=== PATIENT | male | born 1995 | race African-American/Black ===

== ENCOUNTER 2016-08-15 20:43 | Inpatient (IN) | payer SELFPAY ==
[~2016-08-15] VITALS: Ht 182.9 cm; Wt 71.2 kg
[~2016-08-15 20:43] MED LIST: CLIN-44 PO; HYDR-971 PO; PRED-220 PO
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
[2016-08-15 21:29] LABS: BASO # 0.1 x10^3/uL (0.0-0.2); BASO % 0 % (0-3); EOS % 1 % (0-3); HEMOGLOBIN 13.6 g/dL (13.0-17.5); LYMPH # 1.6 x10^3/uL (1.0-4.8); LYMPH % 10 % (24-48); MEAN CORPUSCULAR HEMOGLOBIN 30 pg (25-35); MEAN CORPUSCULAR HGB CONC 32 g/dL (31-37); MEAN CORPUSCULAR VOLUME 94 fL (79-100); MONO % 6 % (0-9); NEUT % 84 % (31-73); PLATELET COUNT 289 x10^3/uL (140-400); RED BLOOD COUNT 4.46 x10^6/uL (4.30-5.70); RED CELL DISTRIBUTION WIDTH 12.4 % (11.5-14.5); WHITE BLOOD COUNT 16.4 x10^3/uL (4.0-11.0)
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
[2016-08-15 21:37] LABS: BILIRUBIN,URINE NEGATIVE (NEG); GLUCOSE,URINE NEGATIVE (NEG); NITRITE,URINE NEGATIVE (NEG); PROTEIN,URINE 100 mg/dL (NEG-TRACE)
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
[2016-08-15 21:39] LABS: GFR 113.1; POTASSIUM 3.6 mmol/L (3.5-5.1)
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
[2016-08-15 21:43] LABS: INR 1.2 (0.8-1.1); PROTHROMBIN TIME PATIENT 14.7 SEC (11.7-14.0)
[2016-08-15 21:43] LABS: BARBITURATES NEG (NEG); BENZODIAZEPINES NEG (NEG); CANNABINOIDS NEG (NEG); COCAINE NEG (NEG); ETHANOL, URINE NEG (NEG); METHADONE NEG (NEG); OPIATES NEG (NEG); PHENCYCLIDINE NEG (NEG)
[2016-08-15 21:45] LABS: BACTERIA,URINE 0 /HPF (0-FEW)
[2016-08-15] MEDS ORDERED: CONTRAST GIVEN MC PRN (22:00)
[2016-08-15] MEDS ORDERED: ONDANSETRON PF 4 MG/2 ML VIAL. IV PRN (22:00)
[2016-08-15] MEDS ORDERED: DIPHTH,PERTUSS(ACELL),TET TOX 0.5 ML DISP.SYRIN. VAX IM ONE (22:00)
[2016-08-15] MEDS ORDERED: FENTANYL PF 100 MCG/2 ML VIAL. IV ONE (22:00)
[2016-08-15] MEDS ORDERED: IOHEXOL 300 MG/ML 75 ML VIAL IV ONE (22:15)
--- NOTE | 2016-08-15 22:23 | ACF ---
Admission Forms Criteria TRAUMATIC BRAIN INJURY, NONSURGICAL TREATMENT Clinical Indications for Admission to Inpatient Care (Place 'X' for any and all applicable criteria): Admission is indicated for head injury and ANY ONE of the following(1)(2)(3)(4)( 5)(6)(7): [ ]I. Postresuscitation or presenting [place] coma scale (GCS) score of less than 13 [ ]II. New focal signs on neurologic examination [ ]III. Persistently diminished level of consciousness (eg, lethargy, disorientation) [ ]IV. Penetrating wounds [ ]V. Evidence of increased ICP (eg, papilledema, persistent vomiting) [ ]. CSF leak(7)(8) [ ]VII. Significant extracranial injuries [ ]VIII. Intracranial pathology on CT scan(6) [X]IX. Inpatient admission required rather than observation care (Use Traumatic Brain Injury, Nonsurgical Treatment: Observation Care Criteria as appropriate) because of ANY ONE of the following: [ ]a) Intracranial infection identified(8) [ ]b) Cerebral vasospasm identified or suspected [ ]c) Recurrent seizures(9) [ ]d) Surgical intervention or complex wound care required(7)(10) [ ]e) Hemodynamic instability [ ]f) Hypertension requiring inpatient treatment [ ]g) Continuous IV infusion of anticoagulant, platelet inhibitor, vasoactive, or antiarrhythmic Medication(11)(12) [ ]h) Cerebral bleeding, hydrocephalus, or vasospasm monitoring (13) [X]i ) Other condition, treatment or monitoring requiring inpatient admission Extended stay beyond goal length of stay may be needed for(23)(24) [ ]a) Severe injury [ ]b) Ventilatory failure [ ]c) Intracranial infection [ ]d) Increased ICP [ ]e) Cerebral vasospasm [ ]f) New-onset seizures [ ]g) Severe neurologic deficits [ ]h) Surgical intervention The original [employer] content created by [employer] has been revised. The portions of the content which have been revised are identified through the use of italic text or in bold, and [facility] has neither reviewed nor approved the modified material. All other unmodified content is copyright [employer]. Please see references footnoted in the original [employer] edition 2016 Admission Criteria Met?: Yes PAMELA RECINOS Aug 15, 2016 22:23
[2016-08-15 22:45] VITALS: BP 126/75
[2016-08-15 23:00] VITALS: BP 126/70
[2016-08-15] MEDS: FENTANYL PF 100 MCG/2 ML VIAL. IV PRN (23:19)
[2016-08-15] MEDS: IV NORMAL SALINE 1000ML BAG 1,000 ML IV SCH (23:43)
[2016-08-16] MEDS: FENTANYL PF 100 MCG/2 ML VIAL. IV PRN ×6 (01:19→18:44)
[2016-08-16 03:00] VITALS: BP 125/63
[2016-08-16 05:26] LABS: BASO # 0.1 x10^3/uL (0.0-0.2); BASO % 1 % (0-3); EOS % 1 % (0-3); HEMATOCRIT 38.9 % (39.0-53.0); HEMOGLOBIN 12.3 g/dL (13.0-17.5); LYMPH # 2.1 x10^3/uL (1.0-4.8); LYMPH % 19 % (24-48); MEAN CORPUSCULAR HEMOGLOBIN 30 pg (25-35); MEAN CORPUSCULAR HGB CONC 32 g/dL (31-37); MEAN CORPUSCULAR VOLUME 94 fL (79-100); MONO % 8 % (0-9); NEUT % 71 % (31-73); PLATELET COUNT 235 x10^3/uL (140-400); RED BLOOD COUNT 4.12 x10^6/uL (4.30-5.70); RED CELL DISTRIBUTION WIDTH 12.4 % (11.5-14.5); WHITE BLOOD COUNT 11.1 x10^3/uL (4.0-11.0)
--- NOTE | 2016-08-16 06:03 | EKG ---
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
[2016-08-16 07:00] VITALS: BP 128/64
[2016-08-16 07:19] LABS: CALCIUM 8.5 mg/dL (8.5-10.1); CREATININE 0.7 mg/dL (0.7-1.3); GFR 170.6; POTASSIUM 3.6 mmol/L (3.5-5.1)
[2016-08-16] MEDS: IV NORMAL SALINE 1000ML BAG 1,000 ML IV SCH ×2 (08:35→17:53)
[2016-08-16] MEDS ORDERED: ONDANSETRON PF 4 MG/2 ML VIAL. IV PRN (09:22)
[2016-08-16] MEDS ORDERED: NAPROXEN 500 MG TABLET PO SCH (10:00)
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
[2016-08-16] MEDS: HYDROCODONE/APAP 5/325MG TABLET. PO PRN ×2 (12:29→20:27)
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
[2016-08-16] MEDS: LIDOCAINE (700MG/PATCH) PATCH. TD SCH (14:00)
[2016-08-16] MEDS ORDERED: GADOBUTROL 7.5 MMOL/7.5 ML VIAL IV ONE (14:30)
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
[2016-08-16] MEDS: GABAPENTIN 100 MG CAPSULE. PO SCH ×2 (15:30→20:24)
[2016-08-16] MEDS: PANTOPRAZOLE 40 MG TABLET. PO SCH (17:09)
[2016-08-16] MEDS: methylPREDNISolone 4 MG TABLET. PO SCH ×4 (17:09→20:25)
[2016-08-16] MEDS: CYCLOBENZAPRINE 10 MG TABLET. PO SCH (18:39)
[2016-08-16] MEDS: OXYCODONE/APAP 10/325 TABLET. PO PRN ×2 (18:43→23:15)
[2016-08-16 19:00] VITALS: BP 133/70
[2016-08-16 23:00] VITALS: BP 129/62
[2016-08-17] MEDS: CYCLOBENZAPRINE 10 MG TABLET. PO SCH ×5 (00:07→20:45)
[2016-08-17] MEDS: PANTOPRAZOLE 40 MG TABLET. PO SCH (06:10)
[2016-08-17 07:00] VITALS: BP 119/51
[2016-08-17] MEDS: OXYCODONE/APAP 10/325 TABLET. PO PRN ×2 (08:20→12:55)
[2016-08-17] MEDS: LIDOCAINE (700MG/PATCH) PATCH. TD SCH (08:21)
[2016-08-17] MEDS: methylPREDNISolone 4 MG TABLET. PO SCH ×3 (08:21→18:12)
[2016-08-17] MEDS: GABAPENTIN 100 MG CAPSULE. PO SCH ×3 (08:22→21:00)
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
[2016-08-17 11:00] VITALS: BP 129/52
[2016-08-17] MEDS: ENOXAPARIN 40 MG/0.4 ML DISP.SYRIN. SQ SCH (11:00)
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
[2016-08-17 15:00] VITALS: BP 108/48
--- NOTE | 2016-08-17 15:28 | PDOC ---
Provider Note Provider Note Onc consult dictated- [id number] T1 marrow intensity changes- Benign, not suggestive of marrow infiltration. No further eval needed. Thank you. MEGGAN ROBERTSON DO Aug 17, 2016 15:28
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
[2016-08-17 19:00] VITALS: BP 130/72
[2016-08-17] MEDS: HYDROCODONE/APAP 5/325MG TABLET. PO PRN (20:45)
[2016-08-17] MEDS ORDERED: methylPREDNISolone 4 MG TABLET. PO SCH (21:00)
[2016-08-17 23:00] VITALS: BP 137/83
[2016-08-18 03:00] VITALS: BP 115/63
[2016-08-18 05:22] LABS: BASO % 0 % (0-3); EOS % 1 % (0-3); HEMATOCRIT 37.7 % (39.0-53.0); HEMOGLOBIN 12.4 g/dL (13.0-17.5); LYMPH # 1.1 x10^3/uL (1.0-4.8); LYMPH % 9 % (24-48); MEAN CORPUSCULAR HEMOGLOBIN 30 pg (25-35); MEAN CORPUSCULAR HGB CONC 33 g/dL (31-37); MEAN CORPUSCULAR VOLUME 93 fL (79-100); MONO % 6 % (0-9); NEUT % 84 % (31-73); PLATELET COUNT 230 x10^3/uL (140-400); RED BLOOD COUNT 4.08 x10^6/uL (4.30-5.70); RED CELL DISTRIBUTION WIDTH 12.4 % (11.5-14.5); WHITE BLOOD COUNT 11.8 x10^3/uL (4.0-11.0)
[2016-08-18 05:53] LABS: CALCIUM 8.8 mg/dL (8.5-10.1); CREATININE 0.9 mg/dL (0.7-1.3); GFR 127.7; POTASSIUM 4.4 mmol/L (3.5-5.1)
[2016-08-18 06:00] LABS: CKMB INDEX 0.5 % (0-4); CKMB MASS 0.6 ng/mL (0.0-3.6)
[2016-08-18] MEDS: CYCLOBENZAPRINE 10 MG TABLET. PO SCH ×4 (06:33→23:09)
[2016-08-18] MEDS: HYDROCODONE/APAP 5/325MG TABLET. PO PRN ×4 (06:35→23:09)
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
[2016-08-18 07:00] VITALS: BP 124/70
[2016-08-18] MEDS: methylPREDNISolone 4 MG TABLET. PO SCH ×4 (08:47→23:09)
[2016-08-18] MEDS: PANTOPRAZOLE 40 MG TABLET. PO SCH (08:47)
[2016-08-18] MEDS: GABAPENTIN 100 MG CAPSULE. PO SCH ×3 (08:47→21:00)
[2016-08-18] MEDS: LIDOCAINE (700MG/PATCH) PATCH. TD SCH (08:47)
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
[2016-08-18] MEDS: ENOXAPARIN 40 MG/0.4 ML DISP.SYRIN. SQ SCH (10:59)
[2016-08-18 11:00] VITALS: BP 130/77
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
[2016-08-18] MEDS ORDERED: ONDANSETRON PF 4 MG/2 ML VIAL. IV PRN (13:45)
[2016-08-18] MEDS ORDERED: ACETAMINOPHEN 325 MG TABLET. PO PRN (13:45)
[2016-08-18 15:00] VITALS: BP 133/69
--- NOTE | 2016-08-18 15:10 | RAD ---
MRI of the cervical spine without contrast 08/18/2016 Clinical history: Neck pain with left leg numbness and heaviness. Technique: Unenhanced T1-weighted, T2-weighted, inversion recovery sagittal and gradient echo and T2-weighted axial images of the cervical spine were obtained. Findings: Comparison is made to CT scan of the cervical spine dated 08/15/2016. Very mild S-shaped curvature of the thoracolumbar spine is seen. There is reversal of the normal cervical lordosis. The morphology and signal characteristics of all the disks of the cervical spine are within normal limits. The marrow signal of the visualized bony structures is within normal limits. Cervical spinal cord is normal in morphology, position, and signal characteristics. Relatively mild degenerative changes are seen involving the cervical disc spaces consisting of minimal to mild generalized disc bulges and degenerative changes involving the uncovertebral and facet joints, left in the right are seen. These findings do not result in definite areas of significant central spinal canal or neural foraminal stenosis. Impression: Relatively mild degenerative changes are seen involving the cervical spine as outlined above. These findings do not result in significant central spinal canal or neural foraminal stenosis. No area of abnormal signal intensity seen involving the cervical spinal cord.
[2016-08-18 19:00] VITALS: BP 126/78
[2016-08-18] MEDS: BISACODYL 5 MG TABLET.DR. PO PRN (19:04)
[2016-08-18] MEDS: MAGNESIUM HYDROXIDE 2,400 MG/30 ML ORAL.SUSP. PO PRN (19:04)
[2016-08-18 23:00] VITALS: BP 101/59
[2016-08-19 03:00] VITALS: BP 115/65
[2016-08-19] MEDS: CYCLOBENZAPRINE 10 MG TABLET. PO SCH ×3 (06:00→19:18)
[2016-08-19 07:00] VITALS: BP 126/67
[2016-08-19] MEDS: LIDOCAINE (700MG/PATCH) PATCH. TD SCH (08:40)
[2016-08-19] MEDS: methylPREDNISolone 4 MG TABLET. PO SCH ×3 (08:40→21:19)
[2016-08-19] MEDS: OXYCODONE/APAP 10/325 TABLET. PO PRN ×3 (08:40→21:22)
[2016-08-19] MEDS: GABAPENTIN 100 MG CAPSULE. PO SCH ×4 (08:40→21:19)
[2016-08-19] MEDS: PANTOPRAZOLE 40 MG TABLET. PO SCH (08:41)
[2016-08-19] MEDS: BISACODYL 5 MG TABLET.DR. PO PRN (08:53)
[2016-08-19] MEDS: MAGNESIUM HYDROXIDE 2,400 MG/30 ML ORAL.SUSP. PO PRN (08:53)
[2016-08-19 11:00] VITALS: BP 121/64
[2016-08-19] MEDS: ENOXAPARIN 40 MG/0.4 ML DISP.SYRIN. SQ SCH (11:00)
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
[2016-08-19] MEDS: HYDROCODONE/APAP 5/325MG TABLET. PO PRN ×2 (13:15→17:25)
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
[2016-08-19 15:00] VITALS: BP 136/75
[2016-08-19 19:00] VITALS: BP 117/64
[2016-08-19 23:00] VITALS: BP 128/77
[2016-08-20] MEDS: CYCLOBENZAPRINE 10 MG TABLET. PO SCH ×5 (00:05→23:34)
[2016-08-20] MEDS: OXYCODONE/APAP 10/325 TABLET. PO PRN (01:59)
[2016-08-20 03:00] VITALS: BP 135/82
[2016-08-20] MEDS: HYDROCODONE/APAP 5/325MG TABLET. PO PRN (06:31)
[2016-08-20] MEDS: PANTOPRAZOLE 40 MG TABLET. PO SCH (06:31)
[2016-08-20 07:00] VITALS: BP 128/71
[2016-08-20] MEDS: methylPREDNISolone 4 MG TABLET. PO SCH ×2 (08:41→21:07)
[2016-08-20] MEDS: GABAPENTIN 100 MG CAPSULE. PO SCH ×3 (08:41→21:08)
[2016-08-20] MEDS: LIDOCAINE (700MG/PATCH) PATCH. TD SCH (08:43)
[2016-08-20] MEDS: DOCUSATE SODIUM 100 MG CAPSULE PO SCH (10:00)
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
[2016-08-20] MEDS: IBUPROFEN 800 MG TABLET. PO SCH ×3 (10:23→21:07)
[2016-08-20] MEDS: ASCORBIC ACID 500 MG TABLET PO SCH (10:23)
[2016-08-20 11:04] VITALS: BP 114/76
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
[2016-08-20] MEDS: ENOXAPARIN 40 MG/0.4 ML DISP.SYRIN. SQ SCH (13:27)
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
[2016-08-20 15:00] VITALS: BP 120/69
[2016-08-20 19:00] VITALS: BP 140/82
[2016-08-20 23:00] VITALS: BP 123/63
[2016-08-21] MEDS: CYCLOBENZAPRINE 10 MG TABLET. PO SCH ×4 (06:00→21:10)
[2016-08-21 07:00] VITALS: BP 130/74
[2016-08-21] MEDS: DOCUSATE SODIUM 100 MG CAPSULE PO SCH (08:31)
[2016-08-21] MEDS: GABAPENTIN 100 MG CAPSULE. PO SCH ×3 (08:31→21:10)
[2016-08-21] MEDS: PANTOPRAZOLE 40 MG TABLET. PO SCH (08:31)
[2016-08-21] MEDS: ASCORBIC ACID 500 MG TABLET PO SCH (08:31)
[2016-08-21] MEDS: IBUPROFEN 800 MG TABLET. PO SCH ×3 (08:31→21:00)
[2016-08-21] MEDS: LIDOCAINE (700MG/PATCH) PATCH. TD SCH (08:32)
[2016-08-21] MEDS ORDERED: methylPREDNISolone 4 MG TABLET. PO SCH (09:00)
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
[2016-08-21 11:00] VITALS: BP 121/73
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
[2016-08-21] MEDS: HYDROCODONE/APAP 5/325MG TABLET. PO PRN (12:28)
[2016-08-21] MEDS: ENOXAPARIN 40 MG/0.4 ML DISP.SYRIN. SQ SCH (12:29)
[2016-08-21 15:00] VITALS: BP 139/76
[2016-08-21 19:00] VITALS: BP 128/67
[2016-08-21 22:13] LABS: BILIRUBIN,URINE NEGATIVE (NEG); GLUCOSE,URINE NEGATIVE (NEG); NITRITE,URINE NEGATIVE (NEG); PH,URINE 6.5; PROTEIN,URINE NEGATIVE (NEG-TRACE)
[2016-08-21 22:20] LABS: BACTERIA,URINE 0 /HPF (0-FEW); RBC,URINE 0 /HPF (0-2); SQUAMOUS EPITHELIAL CELL,UR OCC /LPF
[2016-08-21 23:00] VITALS: BP 132/78
[2016-08-22] MEDS: CYCLOBENZAPRINE 10 MG TABLET. PO SCH ×2 (06:00→12:00)
[2016-08-22 07:00] VITALS: BP 130/64
[2016-08-22] MEDS: PANTOPRAZOLE 40 MG TABLET. PO SCH (07:31)
[2016-08-22] MEDS: DOCUSATE SODIUM 100 MG CAPSULE PO SCH (08:32)
[2016-08-22] MEDS: GABAPENTIN 100 MG CAPSULE. PO SCH (08:32)
[2016-08-22] MEDS: IBUPROFEN 800 MG TABLET. PO SCH (08:32)
[2016-08-22] MEDS: ASCORBIC ACID 500 MG TABLET PO SCH (08:33)
[2016-08-22] MEDS: LIDOCAINE (700MG/PATCH) PATCH. TD SCH (08:34)
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
[2016-08-22 10:45] VITALS: BP 125/65
[2016-08-22] MEDS ORDERED: CYCL10TA2 PO (10:49)
[2016-08-22] MEDS ORDERED: GABA-585 PO (10:49)
[2016-08-22] MEDS: ENOXAPARIN 40 MG/0.4 ML DISP.SYRIN. SQ SCH (11:00)
--- NOTE | 2016-08-22 11:57 | PDOC ---
SUBJECTIVE Subjective Pt. feeling ok OBJECTIVE Objective Voiding ok now Vital Signs Vital Signs Date Time Temp Pulse Resp B/P Pulse Ox O2 Delivery O2 Flow Rate FiO2 08/22/16 10:45 97.9 84 18 125/65 98 Room Air 97.9 08/22/16 07:00 97.6 73 18 130/64 99 Room Air 97.6 08/22/16 03:00 Room Air 08/21/16 23:00 98.1 90 18 132/78 96 Room Air 98.1 08/21/16 19:47 Room Air 08/21/16 19:00 98.1 102 18 128/67 95 Room Air 98.1 08/21/16 15:00 98.2 99 14 139/76 98 Room Air 98.2 08/21/16 13:28 Room Air 08/21/16 12:28 Room Air I & O Intake and Output 08/22/16 07:00 Intake Total 300 ml Output Total 1450 ml Balance -1150 ml Intake Oral 300 ml Output Urine Total 1450 ml # Voids 3 PHYSICAL EXAM Physical Exam testes-descended bilat. RODNEY-prostate 10 gm-smooth PVR-Zero this morning ASSESSMENT/PLAN Assessment/Plan Voiding well now F/U prn Problems: COMMENT Lab Laboratory Tests Test 08/21/16 21:20 Urine Collection Type Unknown Urine Color Yellow Urine Clarity Clear Urine pH 6.5 Urine Specific [place] 1.020 Urine Protein Negativemg/dL (NEG-TRACE) Urine Glucose (UA) Negativemg/dL (NEG) Urine Ketones (Stick) Negativemg/dL (NEG) Urine Blood Negative (NEG) Urine Nitrite Negative (NEG) Urine Bilirubin Negative (NEG) Urine Urobilinogen Dipstick 1.0mg/dL (0.2 mg/dL) Urine Leukocyte Esterase Small (NEG) Urine RBC 0/HPF (0-2) Urine WBC 1-4/HPF (0-4) Urine Squamous Epithelial Cells Occ/LPF Urine Amorphous Sediment Present/HPF Urine Bacteria 0/HPF (0-FEW) Urine Mucus Slight/LPF LEDA DIXON MD Aug 22, 2016 11:57
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
== END 2016-08-22 13:41 | disposition home or self-care (01) | DRG 74 ==
LOC: ER 20:43 → 4 NORTH 21:52
PROVIDERS: ADMIT Internal Medicine; ATTEND Internal Medicine
DX: S84.92XA Injury of unspecified nerve at lower leg level, left leg, initial encounter (principal); R65.10 Systemic inflammatory response syndrome (SIRS) of non-infectious origin without acute organ dysfunction; D69.3 Immune thrombocytopenic purpura; S06.0X9A Concussion with loss of consciousness of unspecified duration, initial encounter; R53.1 Weakness; S33.5XXA Sprain of ligaments of lumbar spine, initial encounter; M54.16 Radiculopathy, lumbar region; D64.9 Anemia, unspecified; Y32.XXXA Crashing of motor vehicle, undetermined intent, initial encounter; Y93.89 Activity, other specified; Y92.89 Other specified places as the place of occurrence of the external cause; Y99.8 Other external cause status; Z88.0 Allergy status to penicillin
CPT/HCPCS: 36415; 70450; 71260; 72125; 72141; 72146; 72158; 74177; 80048; 81001; 82553; 82607; 83605; 84443; 84484; 85027; 85610; 85730; 86850; 86900; 86901; 87086; 93005; G0480; G0481; J1650; J2405; J3010; J7030; J7509; Q9967; 97110; 97116; 97530; 99285-25; A9585